=== PATIENT | female | born 1950 | race African-American/Black ===

== ENCOUNTER 2025-03-10 11:28 | Inpatient (IN) | payer MEDICARE, MEDICAID ==
[~2025-03-10] VITALS: Ht 157.5 cm; Wt 51.8 kg
[2025-03-10 11:31] VITALS: O2SAT 99
[2025-03-10 12:17] LABS: BASOPHILS % 1.0 % (0.0-2.0); EOSINOPHILS % 1.4 % (0.0-5.0); HEMATOCRIT. 38.0 % (36.0-48.0); HEMOGLOBIN. 12.3 g/dL (12.0-16.0); LYMPHOCYTES % 26.7 % (20.0-50.0); MEAN PLATELET VOLUME 7.8 fl (7.4-10.4); MONOCYTES % 9.4 % (2.0-8.0); NEUTROPHILS % 61.5 % (40.0-76.0); PLATELET 447 x1000/uL (130-400); RED BLOOD CELL COUNT 4.42 mill/uL (4.2-5.4); RED CELL DISTRIBUTION WIDTH 14.6 % (11.6-14.6)
[2025-03-10 12:36] LABS: CREATININE 0.9 mg/dL (0.6-1.0)
[2025-03-10 12:37] LABS: ETHANOL BLOOD < 10 mg/dL (<10); PROTEIN TOTAL 8.7 g/dL (6.0-8.3); UREA NITROGEN BLOOD 5 mg/dL (9-23)
[2025-03-10 12:38] LABS: ASPARTATE AMINOTRANSFERASE 27 IU/L (<34)
[2025-03-10 12:39] LABS: BILIRUBIN DIRECT 0.2 mg/dL (<=3.0); BILIRUBIN TOTAL 0.8 mg/dL (0.1-1.0)
[2025-03-10 12:50] LABS: TROPONIN I HIGH SENSITIVITY 1065 ng/L (3.0-34)
[2025-03-10 13:10] LABS: INR 1.0
[2025-03-10] MEDS: SODIUM CHLORIDE 0.9% 1,000 ML IV ONE (13:12)
[2025-03-10 14:58] VITALS: BP 169/78; PULSE 105; RESP 18; TEMP 36.4; O2SAT 100
[2025-03-10] MEDS ORDERED: MORPHINE SULFATE 2 MG/ML INJ (NOT FOR IM USE) IV PRN (15:00)
[2025-03-10] MEDS ORDERED: ACETAMINOPHEN 325MG TABLET PO PRN (15:00)
[2025-03-10] MEDS ORDERED: MAGNESIUM/ALUMINUM HYDROXIDE/SIMETHICONE 30ML UDC PO PRN (15:00)
[2025-03-10] MEDS ORDERED: NALOXONE HCL 0.4MG/ML VIAL IV PRN (15:00)
[2025-03-10] MEDS ORDERED: ZOLPIDEM TARTRATE 5MG TABLET PO PRN (15:00)
[2025-03-10] MEDS ORDERED: ONDANSETRON HCL 4MG/2ML INJ IV PRN (15:00)
[2025-03-10] MEDS: LABETALOL 5MG/ML 4ML INJ IV ONE (15:06)
[2025-03-10] MEDS: HYDROCODONE/ACETAMINOPHEN 5/325MG TABLET PO PRN (15:06)
[2025-03-10] MEDS: SODIUM CHLORIDE 0.9% 1,000 ML IV SCH (15:34)
[2025-03-10 16:04] VITALS: BP 169/79; PULSE 105; RESP 18; TEMP 36.418
[2025-03-10 16:12] VITALS: BP 131/80; PULSE 83; RESP 20; TEMP 36.5; O2SAT 100
[2025-03-10] MEDS ORDERED: LOSA50TA41 PO (18:00)
[2025-03-10] MEDS ORDERED: NIFE90TA60 PO (18:00)
[2025-03-10] MEDS ORDERED: ATOR-388 MT (18:00)
[2025-03-10] MEDS ORDERED: DIAZ5SOL PO (18:00)
[2025-03-10] MEDS ORDERED: CLOP75TA33 PO (18:00)
[2025-03-10] MEDS ORDERED: CLON1PAT10 TP (18:00)
[2025-03-10] MEDS ORDERED: METH-371 PO (18:00)
[2025-03-10] MEDS ORDERED: METH2.5T PO (18:02)
[2025-03-10] MEDS ORDERED: NITR0.4T49 SL (18:02)
[2025-03-10 19:28] LABS: TROPONIN I HIGH SENSITIVITY 1279 ng/L (3.0-34)
[2025-03-10 20:00] VITALS: BP 132/57; PULSE 85; RESP 20; TEMP 37.6; O2SAT 100
[2025-03-10] MEDS: METOPROLOL TARTRATE 25MG TABLET PO SCH (21:00)
[2025-03-10] MEDS: ATORVASTATIN CALCIUM 40MG TABLET PO SCH (21:00)
[2025-03-11] VITALS (8 sets, daily range): BP systolic 121–170; BP diastolic 55–94; PULSE 63–89; RESP 18–20; TEMP 36.4–37.2; O2SAT 95–100
[2025-03-11 01:21] LABS: TROPONIN I HIGH SENSITIVITY 942 ng/L (3.0-34)
[2025-03-11] MEDS: CLONIDINE 0.1MG TABLET PO PRN (03:32)
[2025-03-11 06:29] LABS: BASOPHILS % 0.9 % (0.0-2.0); EOSINOPHILS % 1.8 % (0.0-5.0); HEMATOCRIT. 35.7 % (36.0-48.0); HEMOGLOBIN. 11.7 g/dL (12.0-16.0); LYMPHOCYTES % 26.0 % (20.0-50.0); MEAN PLATELET VOLUME 8.1 fl (7.4-10.4); MONOCYTES % 11.6 % (2.0-8.0); NEUTROPHILS % 59.7 % (40.0-76.0); PLATELET 406 x1000/uL (130-400); RED BLOOD CELL COUNT 4.13 mill/uL (4.2-5.4); RED CELL DISTRIBUTION WIDTH 14.8 % (11.6-14.6)
[2025-03-11 06:43] LABS: TRIGLYCERIDE 70.0 mg/dL (0-150)
[2025-03-11 06:44] LABS: LDL CHOLESTEROL 112.0 mg/dL (5-100)
[2025-03-11] MEDS: PANTOPRAZOLE SODIUM 40 MG/VIAL IV SCH (08:51)
[2025-03-11] MEDS: LOSARTAN 25 MG TABLET PO SCH (08:51)
[2025-03-11 10:24] LABS: TROPONIN I HIGH SENSITIVITY 622 ng/L (3.0-34)
[2025-03-11 14:06] LABS: CLARITY URINE CLEAR (CLEAR); COLOR URINE YELLOW (YELLOW); GLUCOSE URINE NEGATIVE (NEGATIVE); KETONES URINE NEGATIVE (NEGATIVE); LEUKOCYTE ESTERASE URINE NEGATIVE (NEGATIVE); NITRITE URINE NEGATIVE (NEGATIVE); OCCULT BLOOD URINE NEGATIVE (NEGATIVE); PH URINE 5.5 (4.5-8.0); PROTEIN URINE 1+ (NEGATIVE); SPECIFIC GRAVITY URINE 1.021 (1.005-1.030); UROBILINOGEN URINE 0.2 E.U./dL (0.2-1.0)
[2025-03-11 14:17] LABS: *AMPHETAMINES SCREEN URINE NEGATIVE (NEGATIVE); *BARBITURATES SCREEN URINE NEGATIVE (NEGATIVE); *BENZODIAZEPINES SCREEN URINE PRESUMPTIVE POSITIVE (NEGATIVE); *COCAINE SCREEN URINE NEGATIVE (NEGATIVE); CANNABINOID URINE SCREEN NEGATIVE (NEGATIVE); METHADONE URINE SCREEN NEGATIVE (NEGATIVE); OPIATES URINE SCREEN PRESUMPTIVE POSITIVE (NEGATIVE); PHENCYCLIDINE URINE SCREEN NEGATIVE (NEGATIVE)
[2025-03-11 14:18] LABS: ECSTASY MDMA SCREEN URINE NEGATIVE (NEGATIVE)
[2025-03-11 14:24] LABS: BACTERIA URINE TRACE; FINE GRANULAR CASTS URINE 0-5 /lpf; RBC URINE 0-2 /hpf (0-2); SQUAMOUS EPITHELIAL CELL URINE 1+ /lpf (RARE/1+); WBC URINE 0-2 /hpf (0-2)
[2025-03-11] MEDS: HYDRALAZINE 20MG/ML VIAL IV PRN (16:24)
[2025-03-12] VITALS: BP 137/74; PULSE 66; RESP 18; TEMP 36.5; O2SAT 99
[2025-03-12 04:30] VITALS: BP 150/68; PULSE 68; RESP 18; TEMP 36.8; O2SAT 96
[2025-03-12 07:15] LABS: BASOPHILS % 0.7 % (0.0-2.0); EOSINOPHILS % 2.6 % (0.0-5.0); HEMATOCRIT. 32.4 % (36.0-48.0); HEMOGLOBIN. 10.6 g/dL (12.0-16.0); LYMPHOCYTES % 27.9 % (20.0-50.0); MEAN PLATELET VOLUME 7.8 fl (7.4-10.4); MONOCYTES % 11.8 % (2.0-8.0); NEUTROPHILS % 57.0 % (40.0-76.0); PLATELET 370 x1000/uL (130-400); RED BLOOD CELL COUNT 3.68 mill/uL (4.2-5.4); RED CELL DISTRIBUTION WIDTH 15.0 % (11.6-14.6)
[2025-03-12 08:00] VITALS: BP 154/64; PULSE 64; RESP 18; RESP 20; TEMP 37.2; O2SAT 100
[2025-03-12 12:00] VITALS: BP 124/61; PULSE 64; RESP 20; TEMP 36.5; O2SAT 97
[2025-03-12 16:00] VITALS: BP 151/60; PULSE 69; RESP 20; TEMP 37.2; O2SAT 99
[2025-03-12 20:37] VITALS: BP 143/69; PULSE 67; RESP 18; TEMP 36.4; O2SAT 98
[2025-03-13 00:19] VITALS: BP 181/92; PULSE 62; RESP 18; TEMP 37; O2SAT 97
[2025-03-13 04:19] VITALS: BP 174/77; PULSE 55; RESP 18; TEMP 36.7; O2SAT 97
[2025-03-13 08:00] VITALS: BP 191/88; PULSE 72; RESP 18; TEMP 37.1; O2SAT 98
[2025-03-13 08:58] VITALS: BP 174/77; RESP 18
[2025-03-13 08:59] VITALS: PULSE 71
== END 2025-03-13 10:55 | disposition left against medical advice (07) | DRG 64 ==
LOC: ER 11:28 → 7WST 13:39 → EDBEDREQ 13:44 → EDBEDREQTM 13:44
PROVIDERS: ADMIT Internal Medicine; ATTEND Internal Medicine
DX: I61.9 Nontraumatic intracerebral hemorrhage, unspecified (principal); I21.4 Non-ST elevation (NSTEMI) myocardial infarction; M62.82 Rhabdomyolysis; R64 Cachexia; N39.0 Urinary tract infection, site not specified; I11.0 Hypertensive heart disease with heart failure; D64.9 Anemia, unspecified; Z53.29 Procedure and treatment not carried out because of patient's decision for other reasons; I50.9 Heart failure, unspecified; I16.0 Hypertensive urgency; E78.00 Pure hypercholesterolemia, unspecified; R26.9 Unspecified abnormalities of gait and mobility; Z86.73 Personal history of transient ischemic attack (TIA), and cerebral infarction without residual deficits
CPT/HCPCS: 36415; 71045; 80048; 80061; 80076; 80305; 80320; 81003; 82550; 82962; 83036; 83735; 83880; 84443; 84484; 85025; 86850; 86900; 93005; 93970; 96361; 96374; 99291; A4606; J0360; J2470; J3490; J7030; G0480